=== PATIENT | female | born 1970 | race African-American/Black ===

== ENCOUNTER → 2017-03-31 | Outpatient (CLI) | payer OTHER, MEDICAID ==
[2016-02-13 12:01] VITALS: BP 135/78
== END ==
LOC: LAB 13:50
PROVIDERS: ATTEND Family Medicine
DX: Z79.899 Other long term (current) drug therapy (principal)
CPT/HCPCS: 80307; G0434

== ENCOUNTER → 2017-08-31 | Outpatient (CLI) | payer OTHER, MEDICAID ==
[2016-02-13 12:01] VITALS: BP 135/78
== END ==
LOC: LAB 11:22
PROVIDERS: ATTEND Family Medicine
DX: M25.80 Other specified joint disorders, unspecified joint (principal); Z79.899 Other long term (current) drug therapy
CPT/HCPCS: 36415; 80307; G0434

== ENCOUNTER → 2017-10-09 | Outpatient (CLI) | payer OTHER, MEDICAID ==
[2016-02-13 12:01] VITALS: BP 135/78
[2017-10-09 10:56] LABS: ALBUMIN 3.5 g/dL (3.4-5.0); BLOOD UREA NITROGEN 48 mg/dL (7-18); CALCIUM 8.6 mg/dL (8.5-10.1); CARBON DIOXIDE 27.5 mmol/L (21-32); CHLORIDE 91 mmol/L (98-107); CREATININE 8.45 mg/dL (0.55-1.02); PHOSPHORUS 5.4 mg/dL (2.6-4.7); SODIUM 133 mmol/L (136-145); eGFR BLACK RACES 7 (>60); eGFR NON BLACK RACES 5 (>60)
== END ==
LOC: LAB 10:15
PROVIDERS: ATTEND Internal Medicine
DX: T82.868D Thrombosis due to vascular prosthetic devices, implants and grafts, subsequent encounter (principal); E87.5 Hyperkalemia
CPT/HCPCS: 36415; 80069

== ENCOUNTER 2018-01-12 07:43 | Emergency (ER) | payer OTHER, MEDICAID ==
[2016-02-13 12:01] VITALS: BP 135/78
--- NOTE | 2018-01-12 08:44 | DR.ARRHYTH ---
HPI - Time Seen Time seen: 07:35 - Complaint Chief Complaint Doctor Comments: This 47 y/o female was in her usual state of health this AM was being helped into the the dialysis van enroute to dialysis. The driver's license reviewing officer noticed the patient to be leaned over not moving. Investigated and patient was unresponsive. EMS was called. upon arrival patient was unsconscious without a pulse and ACLS protocol started. The code started approximately 0720. Patient arrived to the emerency room at [address] in progress Dr Bishop was in charge patient had had several rounds of medicatins via ACLS protocol. Patient was without a pulse, monitor with rhythmn diagnosed with PEA. Patient received six rounds of medication, no change in cardiac rhythmn; she was pronounced at 0810. via cardiac arrest. I discussed with rogelio newton of events. PMH - PMH Past Medical History: Anemia, Arthritis, Asthma, GERD, Hypertension, Renal Disease Past Surgical History: Yes Surgical History: Unknown - Family History Family Medical History: Diabetes Mellitus, [place] - Social History Do you use any recreational Drugs:: No PE - Vitals Vital Signs: BP BP 02/13/16 12:00 135/78 135/78 - General Limitations: Other (Cardiac arrest) - Head Head Exam: Atraumatic Course - Treatment Treatment: ACLS protocol for cardiac arrest - Reevaluation 1st: Unchanged - Diagnosis Discharge Problem: due to cardiac arrest - Discharge Plan Condition: Stable - Follow ups/Referrals Follow ups/Referrals: TERESO CONDON [Primary Care Provider] - 3 days - Instructions
[2018-01-12 08:45] VITALS: BMI 68.3
[2018-01-12] MEDS ORDERED: SODIUM BICARBONATE 8.4% INJ ADULT ONE (14:40)
[2018-01-12] MEDS ORDERED: ADRENALINE CHL INJ (ABBOJECT) ONE (14:40)
== END 2018-01-12 11:21 | disposition expired ==
LOC: ER 07:43
PROC: 5A12012 Performance of Cardiac Output, Single, Manual (ICD-10-PCS; principal; 2018-01-12)
PROC: 0BH17EZ Insertion of Endotracheal Airway into Trachea, Via Natural or Artificial Opening (ICD-10-PCS; principal; 2018-01-12)
DX: I46.9 Cardiac arrest, cause unspecified (principal)
CPT/HCPCS: 31500; 92950; 93041; 96365; 96374; 96375; 99285; J0170; J3490